=== PATIENT | female | born 1970 | race Caucasian/White ===

== ENCOUNTER → 2016-12-11 | Outpatient (CLI) | payer BC ==
[2016-12-11 07:58] LABS: Basophils # (A) 0.1 k/uL (0-0.2); Basophils % (A) 1 %; CH 29.6; CHCM 32.5; Eosinophils # (A) 0.6 k/uL (0-0.7); Eosinophils % (A) 9 %; HCT 44.9 % (34.0-46.0); HDW 2.53; HGB 14.3 gm/dL (11.4-16.0); Luc # (Auto) 0.24; Luc % (Auto) 3; Lymphocytes # (A) 2.6 k/uL (1.0-4.8); Lymphocytes % (A) 37 %; MCH 29.1 pg (25.0-35.0); MCHC 31.9 g/dL (31.0-37.0); MCV 91.4 fL (80.0-100.0); Mean Platelet Volume 6.6; Monocytes # (A) 0.5 k/uL (0-1.0); Monocytes % (A) 7 %; Neutrophils # (A) 3.1 k/uL (1.3-7.7); Neutrophils % (A) 44 %; RBC 4.92 m/uL (3.80-5.40); RDW 12.7 % (11.5-15.5); WBC 7.2 k/uL (3.8-10.6); WBC (Perox) 7.02
[2016-12-11 08:07] LABS: ALT 85 U/L (9-52); AST 179 U/L (14-36); Alkaline Phosphatase 102 U/L (38-126); Anion Gap 11 mmol/L; Blood Urea Nitrogen 16 mg/dL (7-17); Calcium 10.3 mg/dL (8.4-10.2); Carbon Dioxide 28 mmol/L (22-30); Chloride 104 mmol/L (98-107); Cholesterol 168 mg/dL (<200); Glucose 83 mg/dL (74-99); HDL Cholesterol 58 mg/dL (40-60); Non-African American GFR(MDRD) >60 (>60 ml/min/1.73 sqM); Potassium 4.4 mmol/L (3.5-5.1); Sodium 143 mmol/L (137-145); Total Bilirubin 0.7 mg/dL (0.2-1.3); Triglycerides 112 mg/dL (<150)
== END | disposition home or self-care (01) ==
LOC: LABWHC1 07:11
PROVIDERS: ATTEND Physician Assistant Medical
DX: E78.2 Mixed hyperlipidemia (principal); N95.1 Menopausal and female climacteric states; F41.1 Generalized anxiety disorder; I10 Essential (primary) hypertension; K51.90 Ulcerative colitis, unspecified, without complications
CPT/HCPCS: 36415; 80053; 80061; 85025

== ENCOUNTER → 2016-12-22 | Outpatient (CLI) | payer BC ==
--- NOTE | 2016-12-23 14:15 | MM ---
Reason for exam: screening (asymptomatic). Last mammogram was performed 1 year and 1 month ago. History: Patient is postmenopausal. Family history of breast cancer in mother. Benign excisional biopsy of the left breast, 1998. Taking estrogen for 1 year 6 months. Physical Findings: A clinical breast exam by your physician is recommended on an annual basis and results should be correlated with mammographic findings. MG 3D Screening Mammo W/Cad Bilateral CC and MLO view(s) were taken. Prior study comparison: December 05, 2015, bilateral MG screening mammo w CAD. August 09, 2014, bilateral MG screening mammo w CAD. The breast tissue is heterogeneously dense. This may lower the sensitivity of mammography. No significant changes when compared with prior studies. ASSESSMENT: Negative, BI-RAD 1 RECOMMENDATION: Routine screening mammogram of both breasts in 1 year.
== END | disposition home or self-care (01) ==
LOC: RADMAMWWP 07:21
PROVIDERS: ATTEND Family Medicine
DX: Z12.31 Encounter for screening mammogram for malignant neoplasm of breast (principal)
CPT/HCPCS: 77063; G0202

== ENCOUNTER → 2017-01-21 | Outpatient (CLI) | payer BC ==
[2017-01-21 08:25] LABS: Bilirubin, Delta 0.2 mg/dL (0.0-0.2); Total Bilirubin 0.6 mg/dL (0.2-1.3); Total Protein 7.6 g/dL (6.3-8.2)
== END | disposition home or self-care (01) ==
LOC: LABWHC1 07:16
PROVIDERS: ATTEND Physician Assistant Medical
DX: E78.2 Mixed hyperlipidemia (principal); K51.90 Ulcerative colitis, unspecified, without complications; R53.83 Other fatigue; R74.8 Abnormal levels of other serum enzymes
CPT/HCPCS: 36415; 80061; 80076; 84439; 84443

== ENCOUNTER 2017-05-12 07:49 | Inpatient (IN) | payer BC ==
[2017-05-12] MEDS ORDERED: IPRATROPIUM-ALBUTEROL 3 ML NEB INHALATION STA (08:41)
--- NOTE | 2017-05-12 08:43 | ED ---
General Adult HPI <Andrew Jean - Last Filed: 05/12/17 11:02> - General Source: patient, RN notes reviewed Mode of arrival: ambulatory Limitations: no limitations <Luis Ac - Last Filed: 05/12/17 11:11> - General Chief complaint: Shortness of Breath Stated complaint: SOB Time Seen by Provider: 05/12/17 08:33 - History of Present Illness Initial comments: She is a 47-year-old female who presents emergency room today with chief complaint of cough congestion over the last 4 weeks. She does admit that she was seen by her fisher trot line with routine checkup had a repeat CT to review something that was seen prior. She states often CAT scan didn't show pneumonia. States she was put on antibiotics. She states she just finished a course of Levaquin just 3 days ago. States she's not feeling any better. Still having cough congestion. Patient does have a nebulizer at home but does not have any other medication. Patient does admit to low-grade temperatures 99 F at home. She denies any other complaints or associated symptoms. States cough has been dry. Nonproductive. Patient denies any recent shortness of breath, chest pain, back pain, abdominal pain, nausea or vomiting, numbness or tingling, dysuria or hematuria, constipation or diarrhea, headaches or visual changes, or any other complaints. (Luis Ac) - Related Data Home Medications Medication Instructions Recorded Confirmed Acetaminophen [Tylenol] 650 mg PO Q4H PRN 05/12/17 05/12/17 Albuterol Inhaler [Ventolin Hfa 1 puff INHALATION RT-Q6H PRN 05/12/17 05/12/17 Inhaler] Cetirizine HCl [Zyrtec] 10 mg PO DAILY 05/12/17 05/12/17 Citalopram Hydrobromide [CeleXA] 20 mg PO HS 05/12/17 05/12/17 Estradiol [Vagifem] 10 mcg VG TUFR 05/12/17 05/12/17 Fluticasone/Salmeterol [Advair 1 inhalation PO RT-BID 05/12/17 05/12/17 250-50 Diskus] Ibuprofen [Motrin] 400 mg PO Q6HR PRN 05/12/17 05/12/17 Lisinopril [Zestril] 10 mg PO DAILY 05/12/17 05/12/17 Montelukast Sodium [Singulair] 10 mg PO DAILY 05/12/17 05/12/17 Simponi Injection 1 injection IM Q30D 05/12/17 05/12/17 Allergies Allergy/AdvReac Type Severity Reaction Status Date / Time No Known Allergies Allergy Verified 05/12/17 08:19 Review of Systems ROS Other: All systems not noted in ROS Statement are negative. <Andrew Jean - Last Filed: 05/12/17 11:02> ROS Other: All systems not noted in ROS Statement are negative. <Luis Ac - Last Filed: 05/12/17 11:11> ROS Statement: Those systems with pertinent positive or pertinent negative responses have been documented in the HPI. Past Medical History Past Medical History: Asthma, Hypertension, Pneumonia Additional Past Medical History / Comment(s): colitis History of Any Multi-Drug Resistant Organisms: None Reported Past Surgical History: Hysterectomy Past Psychological History: Anxiety Smoking Status: Never smoker Past Alcohol Use History: None Reported Past Drug Use History: None Reported <Luis Ac - Last Filed: 05/12/17 11:11> General Exam <Andrew Jean - Last Filed: 05/12/17 11:02> Limitations: no limitations <Luis Ac - Last Filed: 05/12/17 11:11> - General Exam Comments Initial Comments: General: The patient is awake and alert, in no distress, and does not appear acutely ill. Eye: Pupils are equal, round and reactive to light, extra-ocular movements are intact. No nystagmus. There is normal conjunctiva bilaterally. No signs of icterus. Ears, nose, mouth and throat: There are moist mucous membranes and no oral lesions. Neck: The neck is supple, there is no tenderness or JVD. Cardiovascular: There is a regular rate and rhythm. No murmur, rub or gallop is appreciated. Respiratory: Lungs are clear to auscultation, respirations are non-labored, breath sounds are equal. No wheezes, stridor, rales, or rhonchi. Musculoskeletal: Normal ROM, no tenderness. Strength 5/5. Sensation intact. Pulses equal bilaterally 2+. Neurological: A&O x 3. CN II-XII intact, There are no obvious motor or sensory deficits. Coordination appears grossly intact. Speech is normal. Skin: Skin is warm and dry and no rashes or lesions are noted. Psychiatric: Cooperative, appropriate mood & affect, normal judgment. (Luis Ac) Medical Decision Making - Lab Data Result diagrams: 05/12/17 08:28 05/12/17 08:28 - Radiology Data Radiology results: image reviewed (Chest x-ray does show moderate right apical opacity.) <Andrew Jean - Last Filed: 05/12/17 11:02> - Lab Data Result diagrams: 05/12/17 08:28 05/12/17 08:28 <Luis Ac - Last Filed: 05/12/17 11:11> - Medical Decision Making Patient reevaluated and updated. Case discussed with Dr. Tran, who will admit for Dr. White. Patient does have evidence of pneumonia and failed outpatient therapy. Patient has previously seen Dr. Gandhi previously. Patient does meet sepsis criteria diagnosed at 11 AM. Lactic acid will be admitted. IV antibiotics have already been started and blood cultures have been drawn. (Andrew Jean) - Lab Data Lab Results 05/12/17 05/12/17 Range/Units 08:28 08:28 WBC 12.0 H (3.8-10.6) k/uL RBC 4.29 (3.80-5.40) m/uL Hgb 11.5 (11.4-16.0) gm/dL Hct 35.9 (34.0-46.0) % MCV 83.5 (80.0-100.0) fL MCH 26.8 (25.0-35.0) pg MCHC 32.0 (31.0-37.0) g/dL RDW 12.8 (11.5-15.5) % Plt Count 899 H* (150-450) k/uL Neutrophils % 74 % Lymphocytes % 15 % Monocytes % 6 % Eosinophils % 4 % Basophils % 1 % Neutrophils # 8.9 H (1.3-7.7) k/uL Lymphocytes # 1.7 (1.0-4.8) k/uL Monocytes # 0.7 (0-1.0) k/uL Eosinophils # 0.5 (0-0.7) k/uL Basophils # 0.1 (0-0.2) k/uL Hypochromasia Moderate Sodium 138 (137-145) mmol/L Potassium 5.0 (3.5-5.1) mmol/L Chloride 104 (98-107) mmol/L Carbon Dioxide 24 (22-30) mmol/L Anion Gap 10 mmol/L BUN 10 (7-17) mg/dL Creatinine 0.68 (0.52-1.04) mg/dL Est GFR (MDRD) Af Amer >60 (>60 ml/min/1.73 sqM) Est GFR (MDRD) Non-Af >60 (>60 ml/min/1.73 sqM) Glucose 89 (74-99) mg/dL Calcium 10.1 (8.4-10.2) mg/dL Total Bilirubin 0.4 (0.2-1.3) mg/dL AST 91 H (14-36) U/L ALT 121 H (9-52) U/L Alkaline Phosphatase 228 H (38-126) U/L Total Protein 8.2 (6.3-8.2) g/dL Albumin 3.6 (3.5-5.0) g/dL Disposition <Andrew Jean - Last Filed: 05/12/17 11:02> Time of Disposition: 10:50 <Luis Ac - Last Filed: 05/12/17 11:11> Clinical Impression: Community acquired pneumonia Disposition: ADMITTED IP TO THIS HOSP Condition: Good Referrals: Bladimir Artis DO [Primary Care Provider] - 1-2 days
--- NOTE | 2017-05-12 09:13 | XR ---
EXAMINATION TYPE: XR chest 2V DATE OF EXAM: 05/12/2017 COMPARISON: 07/07/2011 HISTORY: Cough and fever TECHNIQUE: Frontal and lateral views of the chest are obtained. FINDINGS: There is a new moderate-sized right apical opacity which may reflect underlying pneumonia in the appr opriate clinical setting. Follow up until resolution is advised. Additional areas of chronic opacity left perihilar region and right lower lobe. Cardiomediastinal silhouette is unremarkable and stable. Bony thorax is intact. IMPRESSION: 1. There is a new moderate-sized right apical opacity which may reflect underlying pneumonia in the appropriate clinical setting. Follow up until resolution is advised.
[2017-05-12] MEDS ORDERED: TOBRAMYCIN PER PHARMACY MISCELLANE PRN (09:44)
[2017-05-12] MEDS ORDERED: PNEUMONIA PROTOCOL UTILIZED 1 EACH MISC PO PRN (09:44)
[2017-05-12] MEDS ORDERED: PIPERACILLIN-TAZOBACTAM 3.375 GM in DEXTROSE/WATER 1 50ML.BAG IVPB STA (09:44)
[2017-05-12] MEDS ORDERED: AZITHROMYCIN 500 MG in SODIUM CHLORIDE 0.9% 250 ML IVPB STA (09:44)
[2017-05-12] MEDS ORDERED: SODIUM CHLORIDE 0.9% 1,000 ML IV STA ×2 (09:44→11:04)
[2017-05-12 10:07] LABS: Basophils # (A) 0.1 k/uL (0-0.2); Basophils % (A) 1 %; CH 26.3; CHCM 31.6; Eosinophils # (A) 0.5 k/uL (0-0.7); Eosinophils % (A) 4 %; HCT 35.9 % (34.0-46.0); HGB 11.5 gm/dL (11.4-16.0); Hypochromasia Moderate; Luc # (Auto) 0.16; Luc % (Auto) 1; Lymphocytes # (A) 1.7 k/uL (1.0-4.8); Lymphocytes % (A) 15 %; MCH 26.8 pg (25.0-35.0); MCV 83.5 fL (80.0-100.0); Monocytes # (A) 0.7 k/uL (0-1.0); Monocytes % (A) 6 %; Neutrophils # (A) 8.9 k/uL (1.3-7.7); Neutrophils % (A) 74 %; RBC 4.29 m/uL (3.80-5.40); RDW 12.8 % (11.5-15.5); WBC (Perox) 11.61
[2017-05-12 10:12] LABS: ALT 121 U/L (9-52); AST 91 U/L (14-36); Alkaline Phosphatase 228 U/L (38-126); Anion Gap 10 mmol/L; Blood Urea Nitrogen 10 mg/dL (7-17); Calcium 10.1 mg/dL (8.4-10.2); Carbon Dioxide 24 mmol/L (22-30); Chloride 104 mmol/L (98-107); Glucose 89 mg/dL (74-99); Non-African American GFR(MDRD) >60 (>60 ml/min/1.73 sqM); Sodium 138 mmol/L (137-145); Total Bilirubin 0.4 mg/dL (0.2-1.3); Total Protein 8.2 g/dL (6.3-8.2)
[2017-05-12] MEDS ORDERED: TOBRAMYCIN SULFATE 120 MG in SODIUM CHLORIDE 0.9% 100 ML IVPB ONE (11:00)
[2017-05-12] MEDS ORDERED: ONDANSETRON 4 MG/2 ML VIAL IVP PRN (11:08)
[2017-05-12] MEDS ORDERED: HYDROcodone/APAP 5-325MG 1 EACH TAB PO PRN (11:08)
[2017-05-12] MEDS ORDERED: NALOXONE 0.4 MG/ML 1 ML VIAL IV PRN (11:08)
[2017-05-12] MEDS ORDERED: ACETAMINOPHEN TAB 325 MG TAB PO PRN (11:08)
[2017-05-12] MEDS ORDERED: IPRATROPIUM-ALBUTEROL 3 ML NEB INHALATION PRN (13:40)
[2017-05-12] MEDS: cefTRIAXone 2,000 MG in SODIUM CHLORIDE 0.9% 100 ML IVPB SCH (14:35)
[2017-05-12] MEDS ORDERED: PIPERACILLIN-TAZOBACTAM 3.375 GM in DEXTROSE/WATER 1 50ML.BAG IVPB SCH (16:00)
--- NOTE | 2017-05-12 17:10 | P.HPIM ---
History of Present Illness She is a 47-year-old female who presents emergency room today with chief complaint of cough congestion over the last 4 weeks. He does have history of hypertensive hypersensitivity pneumonitis but a CAT scan was done recently in Dr. Gandhi's office and found to have pneumonia in the right lower lobe patient was started on levofloxacin without any significant improvement in symptoms because of which patient came to ER yesterday and patient was subsequently admitted here patient does have low-grade fever patient's symptoms started a few weeks ago with sinusitis. As unable to bring up anything. Patient does have a nebulizer at home but does not have any other medication. Patient does admit to low-grade temperatures 99F at home. She denies any other complaints or associated symptoms. States cough has been dry. Nonproductive. Patient denies any recent shortness of breath, chest pain, back pain, abdominal pain, nausea or vomiting, numbness or tingling, dysuria or hematuria, constipation or diarrhea, headaches or visual changes, or any other complaints. Review of Systems REVIEW OF SYSTEMS: CONSTITUTIONAL: No fever, no malaise, no fatigue. HEENT: No recent visual problems or hearing problems. Denied any sore throat. CARDIOVASCULAR: No chest pain, orthopnea, PND, no palpitations, no syncope. PULMONARY: She does have shortness of breath, without any orthopnea or PND GASTROINTESTINAL: No diarrhea, no nausea, no vomiting, no abdominal pain. Normoactive bowel sounds. NEUROLOGICAL: No headaches, no weakness, no numbness. HEMATOLOGICAL: Denies any bleeding or petechiae. GENITOURINARY: Denies any burning micturition, frequency, or urgency. MUSCULOSKELETAL/RHEUMATOLOGICAL: Denies any joint pain, swelling, or any muscle pain. ENDOCRINE: Denies any polyuria or polydipsia. The rest of the 14-point review of systems is negative. Past Medical History Past Medical History: Asthma, Hyperlipidemia, Hypertension, Pneumonia Additional Past Medical History / Comment(s): Interstitial lung disease, pneumonias, ulcerative colitis, anemia, slightly elevated cholesterol-not on RX yet, nephrolithiasis-passed stone on her own, History of Any Multi-Drug Resistant Organisms: None Reported Past Surgical History: Hysterectomy Additional Past Surgical History / Comment(s): Hysterectomy/bilateral oophorectomy d/t cysts, VAT with R upper lobe wedge resection, bronchoscopy, colonoscopy Past Anesthesia/Blood Transfusion Reactions: No Reported Reaction Additional Past Anesthesia/Blood Transfusion Reaction / Comment(s): Pt has received blood before without reaction. Smoking Status: Former smoker - Past Family History Father Family Medical History: Asthma, Myocardial Infarction ([place]) Additional Family Medical History / Comment(s): Father of a [place] at the age of 60yrs. Mother Family Medical History: AFIB, Cancer, Rheumatoid Arthritis ([place]) Additional Family Medical History / Comment(s): Mother of multiple health reasons at the age of 67yrs Medications and Allergies Home Medications Medication Instructions Recorded Confirmed Type Acetaminophen [Tylenol] 650 mg PO Q4H PRN 05/12/17 05/12/17 History Albuterol Inhaler [Ventolin Hfa 1 puff INHALATION RT-Q6H PRN 05/12/17 05/12/17 History Inhaler] Cetirizine HCl [Zyrtec] 10 mg PO DAILY 05/12/17 05/12/17 History Citalopram Hydrobromide [CeleXA] 20 mg PO HS 05/12/17 05/12/17 History Estradiol [Vagifem] 10 mcg VG TUFR 05/12/17 05/12/17 History Fluticasone/Salmeterol [Advair 1 inhalation PO RT-BID 05/12/17 05/12/17 History 250-50 Diskus] Ibuprofen [Motrin] 400 mg PO Q6HR PRN 05/12/17 05/12/17 History Lisinopril [Zestril] 10 mg PO DAILY 05/12/17 05/12/17 History Montelukast Sodium [Singulair] 10 mg PO DAILY 05/12/17 05/12/17 History Simponi Injection 1 injection IM Q30D 05/12/17 05/12/17 History Allergies Allergy/AdvReac Type Severity Reaction Status Date / Time No Known Allergies Allergy Verified 05/12/17 08:19 Physical Exam Vitals: Vital Signs Temp Pulse Pulse Resp BP BP Pulse Ox 05/12/17 15:00 97.9 F 82 16 106/66 99 05/12/17 12:12 99.9 F H 88 16 117/71 97 05/12/17 11:30 99.3 F 83 16 113/59 96 05/12/17 10:15 99.0 F 84 18 110/66 97 05/12/17 09:21 90 05/12/17 09:07 96 05/12/17 09:00 18 05/12/17 08:35 98.5 F 92 16 114/55 94 L 05/12/17 07:54 99.2 F 114 H 22 137/79 96 Intake and Output 05/12/17 05/12/17 05/12/17 06:59 14:59 22:59 Intake Total 275 Balance 275 Intake: Intake, IV Titration 275 Amount Azithromycin 500 mg In 125 Sodium Chloride 0.9% 250 ml @ 125 mls/hr IVPB DAILY@1200 TODD Rx#: [id number] Piperacillin-Tazobactam 3 50 .375 gm In Dextrose/Water 1 50ml.bag @ 12.5 mls/hr IVPB Q8H TODD Rx#: [id number] Tobramycin Sulfate 160 mg 100 In Sodium Chloride 0.9% 100 ml @ 104 mls/hr IVPB Q8H TODD Rx#:[id number] Other: Weight 83.915 kg Patient Weight 05/13/17 06:59 Weight 83.915 kg PHYSICAL EXAMINATION: GENERAL: The patient is alert and oriented x3, not in any acute distress. Well developed, well nourished. HEENT: Pupils are round and equally reacting to light. EOMI. No scleral icterus. No conjunctival pallor. Normocephalic, atraumatic. No pharyngeal erythema. No thyromegaly. CARDIOVASCULAR: S1 and S2 present. No murmurs, rubs, or gallops. PULMONARY: Chest is clear to auscultation, no wheezing. Patient does have bronchophony egophony and a lower right lung zambrano posteriorly. ABDOMEN: Soft, nontender, nondistended, normoactive bowel sounds. No palpable organomegaly. MUSCULOSKELETAL: No joint swelling or deformity. EXTREMITIES: No cyanosis, clubbing, or pedal edema. NEUROLOGICAL: Gross neurological examination did not reveal any focal deficits. SKIN: No rashes. Results CBC & Chem 7: 05/12/17 08:28 05/12/17 08:28 Labs: Abnormal Lab Results - Last 24 Hours (Table) 05/12/17 05/12/17 Range/Units 08:28 08:28 WBC 12.0 H (3.8-10.6) k/uL Plt Count 899 H* (150-450) k/uL Neutrophils # 8.9 H (1.3-7.7) k/uL AST 91 H (14-36) U/L ALT 121 H (9-52) U/L Alkaline Phosphatase 228 H (38-126) U/L Thrombosis Risk Factor Assmnt - Choose All That Apply Any of the Below Risk Factors Present?: Yes Each Factor Represents 1 point: Age 41-60 years, Obesity (BMI >25), Serious lung disease incl. pneumonia (< 1month) Other Risk Factors: No Other congenital or acquired thrombophilia - If yes, enter type in comment: No Thrombosis Risk Factor Assessment Total Risk Factor Score: 3 Thrombosis Risk Factor Assessment Level: Moderate Risk Assessment and Plan Plan: #1 pneumonia right upper and lower lobes: Patient failed outpatient therapy with Lovenox and patient was started on Rocephin and azithromycin and Zosyn will discontinue. Will use albuterol as needed. Patient doesn't have any COPD exacerbation at this point of time. 2 history of hypersensitivity pneumonitis. Hyperlipemia 4 hypertension Above-mentioned chronic medical problems I'll continue her home medications.
[2017-05-12] MEDS ORDERED: TOBRAMYCIN SULFATE 160 MG in SODIUM CHLORIDE 0.9% 100 ML IVPB SCH (18:00)
[2017-05-12] MEDS: TOBRAMYCIN SULFATE 160 MG in SODIUM CHLORIDE 0.9% 100 ML IVPB SCH (18:01)
[2017-05-12] MEDS: IPRATROPIUM-ALBUTEROL 3 ML NEB INHALATION SCH ×2 (19:01→23:34)
[2017-05-12] MEDS: PIPERACILLIN-TAZOBACTAM 3.375 GM in DEXTROSE/WATER 1 50ML.BAG IVPB SCH (20:36)
[2017-05-13] MEDS: TOBRAMYCIN SULFATE 160 MG in SODIUM CHLORIDE 0.9% 100 ML IVPB SCH ×2 (00:36→09:10)
[2017-05-13] MEDS: PIPERACILLIN-TAZOBACTAM 3.375 GM in DEXTROSE/WATER 1 50ML.BAG IVPB SCH ×3 (02:28→17:47)
[2017-05-13] MEDS: IPRATROPIUM-ALBUTEROL 3 ML NEB INHALATION SCH ×6 (04:18→23:27)
--- NOTE | 2017-05-13 06:56 | XR ---
EXAMINATION TYPE: XR chest 2V DATE OF EXAM: 05/13/2017 COMPARISON: Chest x-ray from yesterday and older exam March 18, 2017 HISTORY: Fever and pneumonia progress study. TECHNIQUE: Frontal and lateral views of the chest are obtained. FINDINGS: Dense masslike consolidation right lung apex with more inferior patchy opacification is red emonstrated unchanged from one day earlier. There is patchy opacification right lung base redemonstra cornel localized to right middle lobe on lateral view. Background of chronic emphysematous change is pre sent. Left lung remains clear. No large pleural effusion or pneumothorax is seen. Some right apical v olume loss with tracheal shift is present. The cardiac silhouette size remains within normal limits. The osseous structures are intact. IMPRESSION: Persistent right apical infiltrate and consolidation as well as right middle lobe infilt rate all new from February study suggestive of multifocal pneumonia.
[2017-05-13] MEDS ORDERED: TOBRAMYCIN TROUGH DUE 1 EACH MISC MISCELLANE ONE (08:00)
[2017-05-13 08:26] LABS: Basophils # (A) 0.1 k/uL (0-0.2); Basophils % (A) 1 %; CH 26.5; CHCM 31.2; Eosinophils # (A) 0.3 k/uL (0-0.7); Eosinophils % (A) 3 %; HCT 34.8 % (34.0-46.0); HDW 2.98; HGB 10.5 gm/dL (11.4-16.0); Hypochromasia Moderate; Luc # (Auto) 0.16; Luc % (Auto) 2; Lymphocytes # (A) 1.6 k/uL (1.0-4.8); Lymphocytes % (A) 15 %; MCH 25.7 pg (25.0-35.0); MCHC 30.3 g/dL (31.0-37.0); MCV 84.9 fL (80.0-100.0); Mean Platelet Volume 6.4; Monocytes # (A) 0.8 k/uL (0-1.0); Monocytes % (A) 8 %; Neutrophils # (A) 7.7 k/uL (1.3-7.7); Neutrophils % (A) 72 %; WBC 10.7 k/uL (3.8-10.6); WBC (Perox) 10.86
[2017-05-13 08:45] LABS: ALT 101 U/L (9-52); AST 58 U/L (14-36); Alkaline Phosphatase 218 U/L (38-126); Anion Gap 9 mmol/L; Blood Urea Nitrogen 10 mg/dL (7-17); Calcium 10.2 mg/dL (8.4-10.2); Carbon Dioxide 27 mmol/L (22-30); Chloride 102 mmol/L (98-107); Glucose 92 mg/dL (74-99); Non-African American GFR(MDRD) >60 (>60 ml/min/1.73 sqM); Potassium 4.8 mmol/L (3.5-5.1); Sodium 138 mmol/L (137-145); Total Bilirubin 0.4 mg/dL (0.2-1.3); Total Protein 7.7 g/dL (6.3-8.2)
[2017-05-13] MEDS ORDERED: IBUPROFEN 400 MG TAB PO PRN (09:34)
[2017-05-13] MEDS ORDERED: TOBRAMYCIN PEAK DUE 1 EACH MISC MISCELLANE ONE (10:30)
[2017-05-13] MEDS: AZITHROMYCIN 500 MG in SODIUM CHLORIDE 0.9% 250 ML IVPB SCH (11:39)
[2017-05-13] MEDS: cefTRIAXone 2,000 MG in SODIUM CHLORIDE 0.9% 100 ML IVPB SCH (15:56)
--- NOTE | 2017-05-13 16:01 | P.CNPUL ---
History of Present Illness Consult date: 05/13/17 Requesting physician: Katja Tran Reason for consult: abnormal CXR/CT Chief complaint: Shortness of breath History of present illness: This is a very pleasant 47-year-old female patient who follows with Dr. Artis as her primary care physician. She has a history of hypertension, ulcerative colitis, anxiety. She also has a history of chronic bronchial asthma and hypersensitivity pneumonitis, biopsy proven. She follows with Dr. Gandhi in our office for the same. She is maintained on Advair, Singulair and albuterol. She is a lifelong nonsmoker. She presented here yesterday with complaints of increasing shortness of breath dry nonproductive cough and dyspnea on exertion. Her chest x-ray showed evidence of a right apical infiltrate and consolidation as well as a right middle lobe infiltrate that were new as compared to February 2017. She's had a T-max of 99.9. Presenting white count 12.0. There was evidence of thrombocytosis and elevated liver enzymes She has been initiated on ceftriaxone, azithromycin, bronchodilators and Symbicort. She is seen today in consultation on the regular medical floor. She is awake and alert in no acute distress. She is still having significant shortness of breath even while ambulating to the bathroom. She has a dry nonproductive cough. Positive chills and night sweats. She is maintaining good O2 saturations in the upper 90s on room air. She's been afebrile. Hemodynamically stable. Blood culture reveals no growth to date. Review of Systems 14 point review of system was conducted. All negative other than as mentioned in HPI. Past Medical History Past Medical History: Asthma, Hyperlipidemia, Hypertension, Pneumonia Additional Past Medical History / Comment(s): Interstitial lung disease, pneumonias, ulcerative colitis, anemia, slightly elevated cholesterol-not on RX yet, nephrolithiasis-passed stone on her own, History of Any Multi-Drug Resistant Organisms: None Reported Past Surgical History: Hysterectomy Additional Past Surgical History / Comment(s): Hysterectomy/bilateral oophorectomy d/t cysts, VAT with R upper lobe wedge resection, bronchoscopy, colonoscopy Past Anesthesia/Blood Transfusion Reactions: No Reported Reaction Additional Past Anesthesia/Blood Transfusion Reaction / Comment(s): Pt has received blood before without reaction. Smoking Status: Former smoker - Past Family History Father Family Medical History: Asthma, Myocardial Infarction ([place]) Additional Family Medical History / Comment(s): Father of a [place] at the age of 60yrs. Mother Family Medical History: AFIB, Cancer, Rheumatoid Arthritis ([place]) Additional Family Medical History / Comment(s): Mother of multiple health reasons at the age of 67yrs Medications and Allergies Home Medications Medication Instructions Recorded Confirmed Type Acetaminophen [Tylenol] 650 mg PO Q4H PRN 05/12/17 05/12/17 History Albuterol Inhaler [Ventolin Hfa 1 puff INHALATION RT-Q6H PRN 05/12/17 05/12/17 History Inhaler] Cetirizine HCl [Zyrtec] 10 mg PO DAILY 05/12/17 05/12/17 History Citalopram Hydrobromide [CeleXA] 20 mg PO HS 05/12/17 05/12/17 History Estradiol [Vagifem] 10 mcg VG TUFR 05/12/17 05/12/17 History Fluticasone/Salmeterol [Advair 1 inhalation PO RT-BID 05/12/17 05/12/17 History 250-50 Diskus] Ibuprofen [Motrin] 400 mg PO Q6HR PRN 05/12/17 05/12/17 History Lisinopril [Zestril] 10 mg PO DAILY 05/12/17 05/12/17 History Montelukast Sodium [Singulair] 10 mg PO DAILY 05/12/17 05/12/17 History Simponi Injection 1 injection IM Q30D 05/12/17 05/12/17 History Allergies Allergy/AdvReac Type Severity Reaction Status Date / Time No Known Allergies Allergy Verified 05/12/17 08:19 Physical Exam Vitals: Vital Signs Temp Pulse Pulse Resp BP Pulse Ox 05/13/17 15:47 78 05/13/17 15:28 16 05/13/17 15:00 98.7 F 87 16 120/70 96 05/13/17 12:43 84 05/13/17 12:25 88 05/13/17 12:00 16 05/13/17 08:21 84 05/13/17 08:12 84 05/13/17 08:00 16 05/13/17 07:00 98.7 F 82 16 104/57 99 05/13/17 04:31 76 05/13/17 04:18 88 05/12/17 23:42 70 05/12/17 23:34 80 05/12/17 22:55 97.6 F 64 18 111/62 96 05/12/17 19:13 83 05/12/17 19:02 80 Intake and Output 05/13/17 05/13/17 05/13/17 06:59 14:59 22:59 Output Total 1 Balance -1 Output: Stool 1 Other: # Voids 1 GENERAL EXAM: Alert, active, comfortable in no apparent distress. HEAD: Normocephalic. EYES: Normal reaction of pupils, equal size. NOSE: Clear with pink turbinates. THROAT: No erythema or exudates. NECK: No masses, no JVD. CHEST: No chest wall deformity. LUNGS: Equal air entry with no crackles, wheeze, rhonchi or dullness. CVS: S1 and S2 normal with no audible mumurs, regular rhythm. ABDOMEN: No hepatosplenomegaly, normal bowel sounds, no guarding or rigidity. SPINE: No scoliosis or deformity SKIN: No rashes CENTRAL NERVOUS SYSTEM: No focal deficits, tone is normal in all 4 extremities. Results - Laboratory Findings CBC and BMP: 05/13/17 07:46 05/13/17 07:46 Abnormal lab findings: Abnormal Labs 05/12/17 05/12/17 05/13/17 08:28 08:28 07:46 WBC 12.0 H 10.7 H Hgb 10.5 L MCHC 30.3 L Plt Count 899 H* 799 H Neutrophils # 8.9 H AST 91 H ALT 121 H Alkaline Phosphatase 228 H Albumin 05/13/17 07:46 WBC Hgb MCHC Plt Count Neutrophils # AST 58 H ALT 101 H Alkaline Phosphatase 218 H Albumin 3.3 L - Diagnostic Findings Chest x-ray: image reviewed Assessment and Plan Plan: Impression: #1 Dyspnea secondary to right apical infiltrate and consolidation as well as a right middle lobe infiltrate suspect community-acquired pneumonia on top of hypersensitivity pneumonitis. #2 History of hypersensitivity pneumonitis, biopsy proven. #3 Thrombocytosis. #4 Elevated liver enzymes of unclear etiology. #5 Ulcerative colitis maintained on Simponi injections monthly reviewed #6 Mild intermittent asthma. #7 Hypertension. #8 Anxiety. Plan: The patient was seen and evaluated by Dr. Cervantes. Her chest x-rays were reviewed. We'll continue with her current antibiotics, bronchodilators, Symbicort. The patient clinically appears better than her radiographic findings. We will review her last CAT scan done in outside facility in March. In the interim, we will continue to follow and make further recommendations based on her clinical status.
--- NOTE | 2017-05-13 17:30 | P.DS ---
Providers Date of admission: 05/12/17 11:04 Expected date of discharge: 05/13/17 Attending physician: Katja Tran Consults: 05/12/17 11:04 Consult Physician Urgent Consulting Provider: Gerald Gandhi Reason/Comments: dyspnea Do you want consulting provider notified?: Yes Primary care [facility] Hospital Course: Final Diagnoses: #1 pneumonia right upper and lower lobes,suspect community-acquired pneumonia on top of hypersensitivity pneumonitis. 2 history of hypersensitivity pneumonitis. Hyperlipemia 4 hypertension 5.Mild Elevated LFTs,etiology unclear,further f/u OP 6.Anxiety. Hospital course :this is a 47-year-old female who presents emergency room today with chief complaint of cough congestion over the last 4 weeks, history of hypertensive hypersensitivity pneumonitis.Recent CAT scan in Dr. Gandhi's office reported pneumonia in the right lower lobe,started on levofloxacin with failure of outpatient treatment. Evaluated by pulmonary. Maintained on nebulized bronchodilators, IV antibiotics. Significant clinical improvement. Patient is being discharged home in a stable condition with guarded prognosis pending pulmonary clearance clearance. The impression and plan of care has been dictated as directed as a scribe. : I performed a H&P examination of this patient and discussed the same with the dictator. I agree with the dictator's note. Any additional findings/opinions/ etc. will be noted. Patient Condition at Discharge: Stable Plan - Discharge Summary New Discharge Prescriptions: New Azithromycin [Zithromax] 500 mg PO DAILY #5 tab Cefuroxime Axetil [Ceftin] 500 mg PO BID #14 tab Continue Fluticasone/Salmeterol [Advair 250-50 Diskus] 1 inhalation PO RT-BID Estradiol [Vagifem] 10 mcg VG TUFR Montelukast Sodium [Singulair] 10 mg PO DAILY Citalopram Hydrobromide [CeleXA] 20 mg PO HS Cetirizine HCl [Zyrtec] 10 mg PO DAILY Albuterol Inhaler [Ventolin Hfa Inhaler] 1 puff INHALATION RT-Q6H PRN PRN Reason: Shortness Of Breath Ibuprofen [Motrin] 400 mg PO Q6HR PRN PRN Reason: Pain Or Fever > 100.5 Acetaminophen [Tylenol] 650 mg PO Q4H PRN PRN Reason: Pain Or Fever > 100.5 Simponi Injection 1 injection IM Q30D Discharge Medication List Acetaminophen [Tylenol] 650 mg PO Q4H PRN 05/12/17 [History] Albuterol Inhaler [Ventolin Hfa Inhaler] 1 puff INHALATION RT-Q6H PRN 05/12/17 [ History] Cetirizine HCl [Zyrtec] 10 mg PO DAILY 05/12/17 [History] Citalopram Hydrobromide [CeleXA] 20 mg PO HS 05/12/17 [History] Estradiol [Vagifem] 10 mcg VG TUFR 05/12/17 [History] Fluticasone/Salmeterol [Advair 250-50 Diskus] 1 inhalation PO RT-BID 05/12/17 [ History] Ibuprofen [Motrin] 400 mg PO Q6HR PRN 05/12/17 [History] Montelukast Sodium [Singulair] 10 mg PO DAILY 05/12/17 [History] Simponi Injection 1 injection IM Q30D 05/12/17 [History] Azithromycin [Zithromax] 500 mg PO DAILY #5 tab 05/13/17 [Rx] Cefuroxime Axetil [Ceftin] 500 mg PO BID #14 tab 05/13/17 [Rx] Follow up Appointment(s)/Referral(s): Bladimir Artis DO [Primary Care Provider] - 3 Days Sam Cervantes MD [STAFF PHYSICIAN] - 2 Weeks Ambulatory/Diagnostic Orders: Complete Blood Count w/diff [LAB.AMB] Time Frame: 3 Days, Location: Determined By Patient Patient Instructions/Handouts: Community Acquired Pneumonia (DC) Activity/Diet/Wound Care/Special Instructions: Cardiac diet.
[2017-05-13] MEDS: SYMBICORT 80-4.5 MCG INHALER INHALATION SCH (20:24)
[2017-05-13] MEDS ORDERED: CITALOPRAM HYDROBROMIDE 20 MG TAB PO SCH (21:00)
[2017-05-13] MEDS: TOBRAMYCIN SULFATE IVPB SCH (21:09)
[2017-05-13] MEDS: SODIUM CHLORIDE 0.9% IVPB SCH (21:09)
[2017-05-14] MEDS: PIPERACILLIN-TAZOBACTAM 3.375 GM in DEXTROSE/WATER 1 50ML.BAG IVPB SCH (01:48)
[2017-05-14] MEDS: IPRATROPIUM-ALBUTEROL 3 ML NEB INHALATION SCH ×3 (03:48→12:03)
[2017-05-14 07:30] VITALS: BP 113/72; TEMP 97.5
--- NOTE | 2017-05-14 07:43 | XR ---
EXAMINATION TYPE: XR chest 2V DATE OF EXAM: 05/14/2017 CLINICAL HISTORY: Cough TECHNIQUE: Frontal and lateral views of the chest are obtained. COMPARISON: 05/13/2017 FINDINGS: Redemonstration of right apical airspace opacity as well as right lower lobe infiltrate and left perihilar infiltrate. The findings may reflect multifocal pneumonia. Follow-up until resolution is advised. Underlying malignancy is not excluded. Cardiomediastinal silhouette is stable. IMPRESSION: Stable chest. Follow-up until resolution advised.
[2017-05-14] MEDS: SYMBICORT 80-4.5 MCG INHALER INHALATION SCH (07:55)
[2017-05-14 08:19] LABS: Anion Gap 12 mmol/L; Blood Urea Nitrogen 11 mg/dL (7-17); Calcium 10.8 mg/dL (8.4-10.2); Carbon Dioxide 26 mmol/L (22-30); Chloride 101 mmol/L (98-107); Glucose 90 mg/dL (74-99); Non-African American GFR(MDRD) >60 (>60 ml/min/1.73 sqM); Potassium 4.6 mmol/L (3.5-5.1); Sodium 139 mmol/L (137-145)
[2017-05-14] MEDS: TOBRAMYCIN SULFATE IVPB SCH (08:56)
[2017-05-14] MEDS: SODIUM CHLORIDE 0.9% IVPB SCH (08:56)
[2017-05-14] MEDS ORDERED: LORATADINE 10 MG TAB PO SCH (09:00)
[2017-05-14 10:36] VITALS: RESP 18
[2017-05-14] MEDS: cefTRIAXone 2,000 MG in SODIUM CHLORIDE 0.9% 100 ML IVPB SCH (11:28)
[2017-05-14] MEDS: AZITHROMYCIN 500 MG in SODIUM CHLORIDE 0.9% 250 ML IVPB SCH (11:28)
[2017-05-14 12:17] VITALS: PULSE 88
--- NOTE | 2017-05-14 14:15 | P.PN ---
Subjective This is a very pleasant 47-year-old female patient who follows with Dr. Artis as her primary care physician. She has a history of hypertension, ulcerative colitis, anxiety. She also has a history of chronic bronchial asthma and hypersensitivity pneumonitis, biopsy proven. She follows with Dr. Gandhi in our office for the same. She is maintained on Advair, Singulair and albuterol. She is a lifelong nonsmoker. She presented here yesterday with complaints of increasing shortness of breath dry nonproductive cough and dyspnea on exertion. Her chest x-ray showed evidence of a right apical infiltrate and consolidation as well as a right middle lobe infiltrate that were new as compared to February 2017. She's had a T-max of 99.9. Presenting white count 12.0. There was evidence of thrombocytosis and elevated liver enzymes She has been initiated on ceftriaxone, azithromycin, bronchodilators and Symbicort. She is seen today in consultation on the regular medical floor. She is awake and alert in no acute distress. She is still having significant shortness of breath even while ambulating to the bathroom. She has a dry nonproductive cough. Positive chills and night sweats. She is maintaining good O2 saturations in the upper 90s on room air. She's been afebrile. Hemodynamically stable. Blood culture reveals no growth to date. On 05/14/2017 I'm seeing this patient in follow-up. The patient is doing essentially the same as yesterday. I went back and reviewed all of the records and previous history of the patient had. I can't understand that the patient was diagnosed having a hypersensitivity pneumonia based on a wedge lung biopsy that was done by thoracic surgery and a diagnosis was confirmed and the patient was treated with systemic steroids and she improved. I went back also whether reviewed the CAT scan of the chest that was done 2010 and it showed diffuse bilateral consolidations, more so peripheral, more so on the left compared to right. Subsequent CAT scan of the chest from 2011 at shown clinical response. I also received the CAT scan of the chest that was done in April 2017 at [facility]. There is extensive consolidation involving the right lung however double or appearance of the CAT scan finding was similar to the ones that the patient had in 2010. The patient is not septic looking. I doubt there is any bacterial or infectious pneumonia. This likely that we are dealing with a recurrent hypersensitivity pneumonia versus BOOP. Based on this , I'm comfortable discharging this patient home on steroids with a short-term follow-up with the pulmonary to monitor progress. She was agreeable to that. Objective - Vital Signs Vital signs: Vital Signs Temp 97.5 F L 05/14/17 07:00 Pulse 88 05/14/17 12:17 Resp 18 05/14/17 08:00 BP 113/72 05/14/17 07:00 Pulse Ox 97 05/14/17 07:00 Intake & Output 05/13/17 05/14/17 05/14/17 18:59 06:59 18:59 Other: # Voids 1 2 # Bowel Movements 0 - Exam The patient appeared well nourished and normally developed. Vital signs as documented. Head exam is unremarkable. No scleral icterus or corneal arcus noted. Neck is without jugular venous distension, thyromegaly, or carotid bruits. Carotid upstrokes are brisk bilaterally. Lungs are diminished bilaterally with scattered crackles and rhonchi on the right compared to the left especially anteriorly in the right upper lobe area. Cardiac exam reveals the PMI to be normally sized and situated. Rhythm is regular. First and second heart sounds normal. No murmurs, rubs or gallops. Abdominal exam reveals normal bowel sounds, no masses, no organomegaly and no aortic enlargement. Extremities are nonedematous and both femoral and pedal pulses are normal. - Labs CBC & Chem 7: 05/13/17 07:46 05/14/17 07:28 Labs: Abnormal Lab Results - Last 24 Hours (Table) 05/14/17 Range/Units 07:28 Calcium 10.8 H (8.4-10.2) mg/dL Microbiology - Last 24 Hours (Table) 05/12/17 08:28 Blood Culture - Preliminary Blood No Growth after 48 hours Assessment and Plan Plan: Impression: #1 Dyspnea secondary to right apical infiltrate and consolidation of the right lung mainly in the right upper lobe and to lesser extent in the right lower lobe and on the left. CAT scan of the chest was reviewed from 2010 2011 and the CAT scan of the chest from March 2017 was also reviewed. Findings could be consistent with recurrent hypersensitivity pneumonia versus bronchitis obliterans with organizing pneumonia. The patient declined having a another confirmation bronchoscopy. She underwent a surgical wedge biopsy of the lung back in 2010 and it showed hypersensitivity pneumonia. This was biopsy-proven. #2 History of hypersensitivity pneumonitis, biopsy proven. #3 Thrombocytosis. #4 Elevated liver enzymes of unclear etiology. #5 Ulcerative colitis maintained on Simponi injections monthly reviewed #6 Mild intermittent asthma. #7 Hypertension. #8 Anxiety. Plan Based on overall findings, the consolidation is likely inflammatory probably related to hypersensitivity pneumonia. The patient will be started back on high -dose prednisone at 40 mg and the patient will be having a short-term follow-up with pulmonary in the office. Further adjustments will be done according to her clinical response. She may need another biopsy if she doesn't demonstrate any reasonable clinical response. No need for antibiotics. Can be discharged home. All of the records was reviewed. All of the CAT scans was reviewed. Case was discussed with hospitalist. 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
--- NOTE | 2017-05-14 18:14 | P.PN ---
Subjective Date of service 05/13/2017. Progress note being dictated for Dr. Tran. Interval history:this is a 47-year-old female who presents emergency room today with chief complaint of cough congestion over the last 4 weeks, history of hypertensive hypersensitivity pneumonitis.Recent CAT scan in Dr. Gandhi's office reported pneumonia in the right lower lobe,started on levofloxacin with failure of outpatient treatment. Evaluated by pulmonary. Maintained on nebulized bronchodilators, IV antibiotics. Dry nonproductive cough .complains of exertional shortness of breath .afebrile-preliminary blood cultures. Significant clinical improvement. Denies chest pain, palpitations. Objective - Vital Signs Vital signs: Vital Signs Temp 97.5 F L 05/14/17 07:00 Pulse 88 05/14/17 12:17 Resp 18 05/14/17 08:00 BP 113/72 05/14/17 07:00 Pulse Ox 97 05/14/17 07:00 Intake & Output 05/13/17 05/14/17 05/14/17 18:59 06:59 18:59 Other: # Voids 1 2 # Bowel Movements 0 - Exam GENERAL: Temperature 98.7 oral, pulse 87, respiratory rate 16, blood pressure 120/70, O2 sat 96% on room air .The patient is alert and oriented x3, not in any acute distress. Well developed, well nourished. HEENT: Pupils are round and equally reacting to light. EOMI. No scleral icterus. No conjunctival pallor. Normocephalic, atraumatic. No pharyngeal erythema. No thyromegaly. CARDIOVASCULAR: S1 and S2 present. No murmurs, rubs, or gallops. PULMONARY: Chest is clear to auscultation, no wheezing. Patient does have bronchophony egophony and a lower right lung zambrano posteriorly. ABDOMEN: Soft, nontender, nondistended, normoactive bowel sounds. No palpable organomegaly. MUSCULOSKELETAL: No joint swelling or deformity. EXTREMITIES: No cyanosis, clubbing, or pedal edema. NEUROLOGICAL: Gross neurological examination did not reveal any focal deficits. SKIN: No rashes. - Labs CBC & Chem 7: 05/13/17 07:46 05/14/17 07:28 Labs: Abnormal Lab Results - Last 24 Hours (Table) 05/14/17 Range/Units 07:28 Calcium 10.8 H (8.4-10.2) mg/dL Microbiology - Last 24 Hours (Table) 05/12/17 08:28 Blood Culture - Preliminary Blood No Growth after 48 hours Assessment and Plan Plan: #1 pneumonia right upper and lower lobes,suspect community-acquired pneumonia on top of hypersensitivity pneumonitis. 2 history of hypersensitivity pneumonitis. Hyperlipemia 4 hypertension 5.Mild Elevated LFTs,etiology unclear,further f/u OP 6.Anxiety. Plan: Continue on current medication regime ,monitoring and symptomatic treatment. Maintain nebulized bronchodilators, steroids, antibiotics. Pulmonary reviewing chest x-ray, urine district CT from March with high suspicion of hypersensitivity pneumonitis. Maintain supportive care. Discharge planning in progress for tomorrow pending pulmonary clearance. The impression and plan of care has been dictated as directed. : I performed a H&P examination of this patient and discussed the same with the dictator. I agree with the dictator's note. Any additional findings/opinions/ etc. will be noted.
[2017-05-15] MEDS ORDERED: MONTELUKAST 10 MG TAB PO SCH (21:00)
== END 2017-05-14 14:57 | disposition home or self-care (01) | DRG 197 ==
LOC: EC 07:49 → 4MS4W 11:04
PROVIDERS: ADMIT Internal Medicine; ATTEND Internal Medicine
DX: J67.9 Hypersensitivity pneumonitis due to unspecified organic dust (principal); K51.90 Ulcerative colitis, unspecified, without complications; I10 Essential (primary) hypertension; E78.5 Hyperlipidemia, unspecified; D75.89 Other specified diseases of blood and blood-forming organs; E78.00 Pure hypercholesterolemia, unspecified; F41.9 Anxiety disorder, unspecified; J45.20 Mild intermittent asthma, uncomplicated; R74.8 Abnormal levels of other serum enzymes; D47.3 Essential (hemorrhagic) thrombocythemia; Z79.899 Other long term (current) drug therapy; Z87.891 Personal history of nicotine dependence; Z82.49 Family history of ischemic heart disease and other diseases of the circulatory system
CPT/HCPCS: 36415; 71020; 80048; 80053; 80200; 83605; 85025; 87040; 94640

== ENCOUNTER → 2017-05-19 | Outpatient (CLI) | payer BC | LOC: LABWHC1 11:50 | PROVIDERS: ATTEND Internal Medicine Critical Care Medicine | DX: J67.9 Hypersensitivity pneumonitis due to unspecified organic dust (principal); J45.909 Unspecified asthma, uncomplicated | CPT/HCPCS: 36415; 86001; 86606; 86609 ==

== ENCOUNTER → 2017-12-01 | Outpatient (CLI) | payer BC ==
--- NOTE | 2017-12-01 22:16 | CT ---
EXAMINATION TYPE: CT chest w con DATE OF EXAM: 12/01/2017 COMPARISON: CT chest November 17, 2011 HISTORY: Shortness of breath for 2 weeks. Hypersensitivity pneumonitis per order. CT DLP: 385.4 mGycm. Automated Exposure Control for Dose Reduction was Utilized. TECHNIQUE: CT scan of the thorax is performed following with IV Contrast, patient injected with 100 mL of Omnipaque 300. FINDINGS: LUNGS: There is new consolidation with air bronchograms anterior inferior aspect right upper lobe daron tered near axial image 28. There is some peripheral reticular consolidation and/or atelectasis education professor ior lateral right upper lobe superior to this. There is more prominent consolidation superior aspect right lower lobe along the lateral and posterior aspects axial image 35. Consolidation extends inferi brea to involve right lower lobe all the way to the level of diaphragm. There is relative sparing of the right middle lobe with mild groundglass opacity superiorly just below the minor fissure. There is focal irregular consolidation involving anterior-inferior aspect left upper lobe near axial image 24. Lingula and left lower lobe are fairly clear. There is no pleural effusion or pneumothorax seen bilaterally. Tracheobronchial tree is patent. MEDIASTINUM: There are no greater than 1 cm hilar or mediastinal lymph nodes. Prominent but subcenti meter prevascular and paratracheal lymph nodes extending into the anterior superior mediastinum remai n present not significantly changed from prior. No pericardial effusion is seen. Heart size is uppe r limits of normal. OTHER: Small hiatal hernia is redemonstrated felt stable. There is mild multilevel spurring in the th oracic spine which has slight scoliotic curvature redemonstrated. IMPRESSION: Multifocal multilobar pneumonia felt present most prominent in the right lower lobe and r ight upper lobes with some left upper lobe and mild right middle lobe involvement as detailed above.
== END ==
LOC: RADCTMAIN 18:28
PROVIDERS: ATTEND Internal Medicine Critical Care Medicine
DX: J18.9 Pneumonia, unspecified organism (principal)
CPT/HCPCS: 71260; Q9967

== ENCOUNTER → 2017-12-29 | Outpatient (CLI) | payer BC ==
[2017-12-30 02:06] LABS: Rheumatoid Factor 307 IU/mL (0-15)
--- NOTE | 2017-12-30 08:24 | XR ---
EXAMINATION TYPE: XR ankle complete LT DATE OF EXAM: 12/29/2017 COMPARISON: NONE HISTORY: Left ankle pain TECHNIQUE: Three-view left ankle FINDINGS: Ankle mortise is intact. No acute fractures are evident. Normal soft tissue swelling over t he lateral malleolus may be present. Follow-up exam can be performed 7-10 days from acute trauma for continued pain. IMPRESSION: 1. Mild soft tissue swelling lateral malleolus.
== END | disposition home or self-care (01) ==
LOC: RADXRMAIN 17:46
PROVIDERS: ATTEND Family Medicine
DX: M79.89 Other specified soft tissue disorders (principal)
CPT/HCPCS: 84550; 85652; 86038; 86431

== ENCOUNTER → 2018-01-28 | Outpatient (CLI) | payer BC | END | disposition home or self-care (01) | LOC: LABWHC1 16:26 | PROVIDERS: ATTEND Orthopaedic Surgery | DX: E55.9 Vitamin D deficiency, unspecified (principal) | CPT/HCPCS: 36415; 82306 ==

== ENCOUNTER → 2018-04-05 | Outpatient (CLI) | payer BC | END | disposition home or self-care (01) | LOC: LABWHC1 17:08 | PROVIDERS: ATTEND Orthopaedic Surgery | DX: E55.9 Vitamin D deficiency, unspecified (principal) | CPT/HCPCS: 36415; 82306 ==

== ENCOUNTER → 2018-05-18 | Outpatient (CLI) | payer BC ==
--- NOTE | 2018-05-18 13:23 | US ---
EXAMINATION TYPE: US venous doppler duplex LE DATE OF EXAM: 05/18/2018 12:47 PM COMPARISON: NONE CLINICAL HISTORY: M25.562 Pain in Left Knee, M25.561 Pain in Rt knee. Patient fell inside a moving tr uck and hit her right leg on a bed frame. Bruising on right leg behind her knee. Pain SIDE PERFORMED: Bilateral TECHNIQUE: The lower extremity deep venous system is examined utilizing real time linear array sonog arlyn with graded compression, doppler sonography and color-flow sonography. VESSELS IMAGED: External Iliac Vein (EIV) Common Femoral Vein Deep Femoral Vein Greater Saphenous Vein * Femoral Vein Popliteal Vein Small Saphenous Vein * Proximal Calf Veins (* superficial vessels) Grayscale, color doppler, spectral doppler imaging performed of the deep veins of the lower extremiti es. There is normal flow, compressibility, vascular waveforms. Right popliteal subcutaneous edema i s noted. No discrete measurable fluid collection. Right Leg: Negative for DVT Left Leg: Negative for DVT IMPRESSION: No sonographic evidence of deep venous arthrosis within either lower extremity. Subcutan eous edema is noted within the right popliteal region and the area of patient's known bruising. No fo charli fluid collection is seen.
== END | disposition home or self-care (01) ==
LOC: RADUSWWP 12:13
PROVIDERS: ATTEND Orthopaedic Surgery
DX: S80.01XA Contusion of right knee, initial encounter (principal); R60.0 Localized edema
CPT/HCPCS: 93970

== ENCOUNTER → 2018-06-10 | Outpatient (CLI) | payer BC ==
--- NOTE | 2018-06-15 12:35 | MM ---
Reason for exam: screening (asymptomatic). Last mammogram was performed 1 year and 6 months ago. History: Patient is postmenopausal. Family history of breast cancer in mother. Benign excisional biopsy of the left breast, 1998. Taking estrogen for 1 year 6 months. Physical Findings: A clinical breast exam by your physician is recommended on an annual basis and results should be correlated with mammographic findings. MG 3D Screening Mammo W/Cad Bilateral CC and MLO view(s) were taken. Prior study comparison: December 22, 2016, bilateral MG 3d screening mammo w/cad. December 05, 2015, bilateral MG screening mammo w CAD. The breast tissue is heterogeneously dense. This may lower the sensitivity of mammography. There is no discrete abnormality. ASSESSMENT: Negative, BI-RAD 1 RECOMMENDATION: Routine screening mammogram of both breasts in 1 year.
== END | disposition home or self-care (01) ==
LOC: RADMAMWWP 13:13
PROVIDERS: ATTEND Family Medicine
DX: Z12.31 Encounter for screening mammogram for malignant neoplasm of breast (principal)
CPT/HCPCS: 77063; 77067

== ENCOUNTER → 2019-09-09 | Outpatient (CLI) | payer BC | END | disposition home or self-care (01) | LOC: CPPFTMAIN 07:36 | PROVIDERS: ATTEND Internal Medicine Critical Care Medicine | DX: J44.9 Chronic obstructive pulmonary disease, unspecified (principal) | CPT/HCPCS: 94060; 94726; 94729 ==

== ENCOUNTER → 2023-11-03 | Outpatient (CLI) | payer BC ==
--- NOTE | 2023-11-09 10:33 | CT ---
EXAMINATION TYPE: CT chest w con CT DLP: 408.8 mGycm, Automated exposure control for dose reduction was used. DATE OF EXAM: 11/03/2023 8:35 AM COMPARISON: CT 12/01/2017 . CLINICAL INDICATION:Female, 53 years old with history of R06.02 SOB; PHH, SOB TECHNIQUE: Multiple axial images were obtained through the chest. Sagittal and coronal reformats were created for review. Contrast used:100 mL of Isovue 300 with IV Contrast (None if empty) Oral contrast used: (None if empty) FINDINGS: LUNGS/ PLEURA: Previous pulmonary infiltrates have cleared. There are 2 to 3 mm nodular densities in the right lung images 21, 30, 33 as examples, which are in the general area of the previous infiltrat es and likely benign granulomas. Calcified 3 mm granuloma seen in the right upper lobe image 73. No nodules greater than 6 mm are identified. No acute consolidation, pleural effusion, or pneumothora x. Mild biapical scarring, mild pleural thickening towards the right more than left lung apex. There is some broadening of the AP dimension of the lungs, correlate clinically for COPD. AIRWAY: Central airways are patent. LOWER NECK: No significant findings. MEDIASTINUM: No gross evidence of adenopathy. Some stippled soft tissue density in the anterior medi astinum likely residual or reactivated thymic tissue. Small to moderate sized hiatal hernia. HEART: Mild cardiomegaly. No significant coronary arterial calcification seen. No significant pericar dial effusion. VASCULATURE: Mild atherosclerotic calcifications of the aorta. Ascending aorta is 2.2 CM, descending is 2.4 CM. Aorta is considered normal in size. Pulmonary trunk measures 2.7 CM. Pulmonary trunk is normal in size. Grossly preserved enhancement of the pulmonary arteries, in the limits of non-CTA exam. SOFT TISSUES/LYMPH NODES: Unremarkable soft tissues. No axillary adenopathy. UPPER ABDOMEN: No significant findings. No mass of the visualized adrenals. MUSCULOSKELETAL: No acute osseous abnormalities. Mild disc degeneration changes are present throughou t the thoracolumbar spine. IMPRESSION: 1. No acute abnormality in the chest. 2. Interval clearing of the previous pulmonary infiltrates with mild residual scarring. No acute inf iltrate. 3. A few tiny calcified and noncalcified pulmonary nodules, likely related to prior granulomatous di sease. 4. [id number] hiatal hernia.
== END | disposition home or self-care (01) ==
LOC: RADCTMAIN 08:07
PROVIDERS: ATTEND Internal Medicine Critical Care Medicine
DX: K44.9 Diaphragmatic hernia without obstruction or gangrene (principal); R91.8 Other nonspecific abnormal finding of lung field; R06.02 Shortness of breath; J98.4 Other disorders of lung
CPT/HCPCS: 71260; Q9967